=== PATIENT | male | born 1950 | race Caucasian/White ===

== ENCOUNTER 2019-03-12 11:10 | Emergency (ER) | payer BC ==
[2019-03-12 11:26] VITALS: BP 157/84
[2019-03-12] MEDS ORDERED: DIPH/PERTUSS(ACELL)/TETANUS VAC/PF 0.5 ML SYR (>=10YO) IM ONE (11:56)
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
[2019-03-12] MEDS ORDERED: CEPHALEXIN 500 MG CAPSULE PO ONE (12:53)
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
== END 2019-03-12 13:39 | disposition home or self-care (01) ==
LOC: ER 11:10
PROC: 2W3GX1Z Immobilization of Right Thumb using Splint (ICD-10-PCS; principal; 2019-03-12)
DX: S62.514A Nondisplaced fracture of proximal phalanx of right thumb, initial encounter for closed fracture (principal); S40.012A Contusion of left shoulder, initial encounter; M25.512 Pain in left shoulder; M79.644 Pain in right finger(s); V11.0XXA Pedal cycle driver injured in collision with other pedal cycle in nontraffic accident, initial encounter
CPT/HCPCS: 90471; 90715; 99283